=== PATIENT | male | born 1975 | race Caucasian/White ===

== ENCOUNTER 2017-07-12 11:10 | Emergency (ER) | payer SELFPAY ==
[~2017-07-12] VITALS: Ht 185.4 cm; Wt 81.6 kg
[~2017-07-12 11:10] MED LIST: AMOX-362 PO; CEPH500T7 PO; HYDR-385 PO; HYDR-4309 PO; LOR5/325 PO
[2017-07-12 11:30] VITALS: BP 118/89
--- NOTE | 2017-07-12 11:36 | ER Report ---
History and Physical Time Seen By MD: 11:31 Hx. of Stated Complaint: PT BROKE A TOOTH R LOWER JAW, IT HAS BEEN HURTING FOR 2 DAYS. SLIGHT SWELLING NOTED HPI/ROS CHIEF COMPLAINT: Right jaw pain HISTORY OF PRESENT ILLNESS: Patient with history of right lower tooth discomfort now with some jaw swelling. Has not followed up yet with dentist. Denies fevers or chills Allergies: Coded Allergies: codeine (Verified Allergy, Mild, ITCHING, 07/12/17) Home Meds Active Scripts Oxycodone Hcl/Acetaminophen (PERCOCET 5-325 MG TABLET) 1 Each Tablet, 1 EACH PO Q6H for PAIN, #12 TAB 0 Refills Prov:SIXTO HERRING MD 07/12/17 Amoxicillin (AMOXICILLIN) 500 Mg Capsule, 1 CAP PO Q8H, #21 CAPSULE 0 Refills TAKE ONE CAPSULE BY MOUTH EVERY 8 HOURS Prov:SIXTO HERRING MD 07/12/17 Discontinued Scripts Hydrocodone Bit/Acetaminophen (HYDROCODON-ACETAMINOPHEN 5-325) 1 Each Tablet, 1 EACH PO Q4-6H Y for PAIN, #12 TAB Prov:DOROTEO MUSE 02/24/17 Hydrocodone Bit/Acetaminophen (HYDROCODON-ACETAMINOPHEN 5-325) 1 Each Tablet, 1 EACH PO Q4-6H Y for pain, #15 TAB Prov:DEO RAYMOND DO 01/13/17 Hydrocodone Bit/Acetaminophen (NORCO 5-325 TABLET) 1 Each Tablet, 1 EACH PO Q4- 6H Y for PAIN, #12 TAB Prov:DOROTEO MUSE 03/14/16 Amoxicillin (AMOXICILLIN) 500 Mg Capsule, 1 CAP PO Q8H, #30 CAPSULE Prov:DOROTEO MUSE 03/14/16 Past Medical/Surgical History Noncontributory Hx Substance Use Disorder: No Hx Alcohol Use: No (ALCOHOL AND DRUGS IN PAST) Constitutional Vital Sign - Last 24 Hours 07/12/17 07/12/17 07/12/17 11:13 11:15 11:30 Temp 97.6 Pulse 49 Resp 20 B/P (MAP) 144/106 (119) 144/106 118/89 (99) Pulse Ox 98 O2 Delivery Room Air Physical Exam General Appearance: Alert, no distress. ENT, Mouth: Ears: Tympanic membranes are normal. Nose: No bleeding. Mouth: Mucous membranes are moist. Patient with missing of the 2nd right maxillary molar also did some gingivitis is localized to the area Throat: No erythema or exudates there is no tonsillar hypertrophy and uvula is midline. Medical Decision Making ED Course/Re-evaluation ED Course Plan at this time will be to refer to oral maxillary facial surgery in the meantime we will start the patient on oral antibiotics and short course of pain medication Decision to Disposition Date: Jul 12, 2017 Decision to Disposition Time: 11:43 Depart Departure Latest Vital Signs Vital Signs Date Time Temp Pulse Resp B/P (MAP) Pulse Ox O2 Delivery O2 Flow Rate FiO2 07/12/17 11:30 118/89 (99) 07/12/17 11:15 97.6 49 20 98 Room Air Impression: Primary Impression: Toothache Condition: Improved Disposition: HOME OR SELF-CARE Referrals: AMITA PAULA DDS, MD 1 Week New Scripts Oxycodone Hcl/Acetaminophen (PERCOCET 5-325 MG TABLET) 1 Each Tablet 1 EACH PO Q6H for PAIN, #12 TAB 0 Refills Prov: SIXTO HERRING MD 07/12/17 Amoxicillin (AMOXICILLIN) 500 Mg Capsule 1 CAP PO Q8H, #21 CAPSULE 0 Refills TAKE ONE CAPSULE BY MOUTH EVERY 8 HOURS Prov: SIXTO HERRING MD 07/12/17 Patient Instructions: Toothache (ED) SIXTO HERRING MD Jul 12, 2017 11:36
[2017-07-12] MEDS ORDERED: AMOX-362 PO (11:38)
[2017-07-12] MEDS ORDERED: OXYC-865 PO (11:38)
[2017-07-12] MEDS ORDERED: AMOXICILLIN 500 MG CAP PO ONE (11:40)
== END 2017-07-12 11:51 | disposition home or self-care (01) ==
LOC: ER 11:27
DX: K08.89 Other specified disorders of teeth and supporting structures (principal)
CPT/HCPCS: 99281